=== PATIENT | female | born 1930 | race Caucasian/White ===

== ENCOUNTER 2016-05-04 08:43 | Emergency (ER) | payer OTHER ==
[~2016-05-04] VITALS: Ht 165.1 cm; Wt 68.0 kg
--- NOTE | ~2016-05-04 | EKG ---
[address] [address] ELECTROCARDIOGRAM REPORT Name: ANTHONY ELI Room #: DEP [facility] [id number] Admission: 05/04/16 Attend Phys: Discharge: 05/04/16 Date of : [birth year] Report #: [id number] THIS REPORT FOR: //name// [facility] ED Test Date: 2016-05-04 Test Time: 08:48:40 Pat Name: ANTHONY ELI Department: Room: Gender: F Stay Cutter: LOKESH : 1930 Requested By: Anastasia Thorne Order Number: [id number] MD: Tommy Solares Measurements Intervals [place] Rate: 73 P: 50 CT: 272 QRS: -31 QRSD: 106 T: 67 QT: 383 QTc: 422 Interpretive Statements Sinus rhythm Prolonged CT interval Left axis deviation Compared to ECG 01/08/2016 10:54:55 No significant changes Electronically Signed On 05-04-2016 16:32:54 [employer]LY[employer] by Tommy Solares [email or web address] <ELECTRONICALLY SIGNED> By: Tommy Solares MD 05/04/16 1632 D: [id number] Tommy Solares MD /ANDREY
[~2016-05-04 08:43] MED LIST: ALBUTEROL2.5 MG/0.5 INH; CIPRO250 M1 PO; HYDRALAZINE 2525 MG PO; HYDROCODON-ACE1 EAC7 PO; HYDROXYZINE HCL25 M2 PO; LEVAQUIN 500 M500 M2 PO; LIPITOR 20 MG T20 M1 PO; LISINOPRIL20 MG PO; LOPERAMIDE 2 MG2 M1 PO; MAPAP500 MG PO; MELATONIN3 MG PO; MYTAB GAS80 MG PO; OXYGEN MISCELL; PRAVACHOL40 MG PO; PREPARATION H C54 GM RECTAL
[2016-05-04 09:10] LABS: ABSOLUTE NEUTROPHILS 5.4 thou/uL (1.4-8.2); EOSINOPHILS 3.2 % (0.0-3.0); HEMATOCRIT 44.9 % (37.0-47.0); HEMOGLOBIN 14.9 gm/dL (12.0-15.0); LYMPHOCYTES 19.9 % (24.0-44.0); MCH 27.8 pg (26.0-34.0); MCHC 33.3 % (28.0-37.0); MCV 83.5 fL (80.0-100.0); MONOCYTES 8.3 % (1.0-8.0); PLATELET COUNT 209 thou/uL (150-400); POLYS 67.6 % (36.0-66.0); RBC 5.37 mil/uL (4.20-5.00); RDW 15.4 % (10.5-14.5)
[2016-05-04 09:18] LABS: MANUAL DIFF NO
[2016-05-04] MEDS ORDERED: LISINOPRIL20 MG PO (09:48)
[2016-05-04] MEDS ORDERED: HYDROXYZINE HCL25 M1 PO (09:48)
[2016-05-04] MEDS ORDERED: VITAMIN B-12500 MCG PO (09:48)
[2016-05-04] MEDS ORDERED: PREPARATION H1 EAC2 (09:49)
[2016-05-04] MEDS ORDERED: TYLENOL325 MG PO (09:49)
[2016-05-04] MEDS ORDERED: LOPERAMIDE2 MG PO (09:49)
[2016-05-04 09:53] LABS: CALCIUM 9.4 mg/dL (8.5-10.1); CREATININE 0.8 mg/dL (0.6-1.3); POTASSIUM 4.5 mmol/L (3.5-5.1)
== END 2016-05-04 11:29 | disposition home or self-care (01) ==
LOC: ER 08:43
PROVIDERS: Emergency Medicine
DX: R06.00 Dyspnea, unspecified (principal); I10 Essential (primary) hypertension; E78.5 Hyperlipidemia, unspecified; Z87.442 Personal history of urinary calculi; F03.90 Unspecified dementia, unspecified severity, without behavioral disturbance, psychotic disturbance, mood disturbance, and anxiety; Z88.6 Allergy status to analgesic agent; Z88.3 Allergy status to other anti-infective agents; Z88.1 Allergy status to other antibiotic agents